=== PATIENT | female | born 1965 | race African-American/Black ===

== ENCOUNTER 2023-08-18 06:29 | Emergency (ER) | payer SELFPAY ==
[~2023-08-18] VITALS: Ht 167.6 cm; Wt 77.0 kg
[2023-08-18 06:41] VITALS: BP 165/87; PULSE 108; RESP 18; O2SAT 100
[2023-08-18 11:28] VITALS: TEMP 98.4
[2023-08-18] MEDS ORDERED: ACETAMINOPHEN 325MG TABLET PO ONE (11:30)
[2023-08-18] MEDS ORDERED: LIDO700A15 TP (12:03)
[2023-08-18] MEDS ORDERED: TOPUD MT (12:03)
== END 2023-08-18 12:21 | disposition home or self-care (01) ==
LOC: ER 06:29
DX: S50.02XA Contusion of left elbow, initial encounter (principal); S09.90XA Unspecified injury of head, initial encounter; V49.9XXA Car occupant (driver) (passenger) injured in unspecified traffic accident, initial encounter; Y93.89 Activity, other specified; Y92.89 Other specified places as the place of occurrence of the external cause; Y99.8 Other external cause status
CPT/HCPCS: 70486; 73080; 99284